=== PATIENT | female | born 1980 | race Caucasian/White ===

== ENCOUNTER → 2016-08-03 | Outpatient (CLI) | payer BC | LOC: MW.LAB 14:32 | PROVIDERS: ATTEND Specialist | DX: N97.9 Female infertility, unspecified (principal) | CPT/HCPCS: 36415; 84144 ==

== ENCOUNTER 2017-09-01 10:49 | Observation (INO) | payer BC ==
[2017-09-01] MEDS ORDERED: Sodium Chloride 0.9% 10 ML Syringe FLUSH PRN ×2 (11:26→11:40)
[2017-09-01] MEDS ORDERED: Sodium Chloride 0.9% 2.5 ML Syringe FLUSH PRN ×2 (11:26→11:40)
[2017-09-01] MEDS ORDERED: Lactated Ringers 1,000 ML IV SCH (11:45)
[2017-09-01] MEDS: Misoprostol 200 MCG Tab VAG SCH ×2 (12:10→15:33)
[2017-09-01] MEDS ORDERED: Morphine 4 MG/ML Syringe IVPUSH PRN (12:57)
[2017-09-01] MEDS ORDERED: Acetaminophen 500 MG Tab PO PRN (12:59)
[2017-09-01] MEDS: Butorphanol 1 MG/ML SDV IVPUSH PRN ×2 (13:05→14:57)
[2017-09-01] MEDS ORDERED: Morphine 4 MG/ML Syringe IVPUSH ONE (16:04)
[2017-09-01] MEDS ORDERED: Morphine 10 MG/ML Syringe IVPUSH PRN (16:05)
[2017-09-01] MEDS: Lactated Ringers 1,000 ML IV SCH ×2 (18:18→19:27)
--- NOTE | 2017-09-01 18:54 | PCM.PREANE ---
Preanesthetic Assessment - Anesthesia/Transfusion/Family Hx Anesthesia History: Prior Anesthesia Without Reaction Transfusion History: Prior Transfusion Without Reaction - Review of Systems General: No Symptoms Pulmonary: No Symptoms Cardiovascular: No Symptoms Gastrointestinal: No Symptoms Neurological: No Symptoms Other: Reports: None - Physical Assessment Height: 5 ft 8 in Weight: 115.666 kg ASA Class: 3 Mental Status: Alert & Oriented x3 Airway Class: Mallampati = 2 Dentition: Reports: Normal Dentition Thyro-Mental Finger Breadths: 3 Mouth Opening Finger Breadths: 3 ROM/Head Extension: Full Lungs: Clear to Auscultation, Normal Respiratory Effort Cardiovascular: Regular Rate, Regular Rhythm - Lab Values: Laboratory Last Values WBC 7.41 K/uL (4.0-11.0) 09/01/17 12:35 RBC 4.40 M/uL (4.30-5.90) 09/01/17 12:35 Hgb 13.2 g/dL (12.0-16.0) 09/01/17 12:35 Hct 38.4 % (36.0-46.0) 09/01/17 12:35 MCV 87.3 fL (80.0-98.0) 09/01/17 12:35 MCH 30.0 pg (27.0-32.0) 09/01/17 12:35 MCHC 34.4 g/dL (31.0-37.0) 09/01/17 12:35 RDW Std Deviation 43.5 fl (28.0-62.0) 09/01/17 12:35 RDW Coeff of Aiden 14 % (11.0-15.0) 09/01/17 12:35 Plt Count 227 K/uL (150-400) 09/01/17 12:35 MPV 9.30 fL (7.40-12.00) 09/01/17 12:35 Nucleated RBC % 0.0 /100WBC 09/01/17 12:35 Nucleated RBCs # 0 K/uL 09/01/17 12:35 Blood Type A POSITIVE 09/01/17 12:35 Antibody Screen NEGATIVE 09/01/17 12:35 Antigen Typing E Antigen - NEGATIVE 09/01/17 12:35 Crossmatch See Detail 09/01/17 12:35 - Allergies Allergies/Adverse Reactions: Allergies Allergy/AdvReac Type Severity Reaction Status Date / Time No Known Allergies Allergy Verified 07/22/13 14:34 - Acknowledgements Anesthesia Type Planned: Epidural Pt an Appropriate Candidate for the Planned Anesthesia: Yes Alternatives and Risks of Anesthesia Discussed w Pt/Guardian: Yes Pt/Guardian Understands and Agrees with Anesthesia Plan: Yes PreAnesthesia Questionnaire HEENT History: Reports: None Cardiovascular History: Reports: None Respiratory History: Reports: None Gastrointestinal History: Reports: GERD Genitourinary History: Reports: None [employer] History: Reports: , Spontaneous : 3 Para: 1 LMP (Approximate): Other OB/BYN History: Hx of retatained placenta Musculoskeletal History: Reports: Fracture Neurological History: Reports: Migraines Psychiatric History: Reports: Anxiety, Depression, OCD, Panic Attack Endocrine/Metabolic History: Reports: Hypothyroidism, Obesity/BMI 30+ Hematologic History: Reports: None Immunologic History: Reports: None Oncologic (Cancer) History: Reports: None Dermatologic History: Reports: None - Infectious Disease History Infectious Disease History: Reports: None - Past Surgical History GI Surgical History: Reports: Cholecystectomy Female Surgical History: Reports: None Musculoskeletal Surgical History: Reports: ORIF Other Musculoskeletal Surgeries/Procedures:: left tibia - SUBSTANCE USE Smoking Status *Q: Never Smoker Second Hand Smoke Exposure: No Recreational Drug Use History: No - HOME MEDS Home Medications: Home Meds Enoxaparin Sodium [Lovenox] 40 mg SQ DAILY 09/01/17 [History] Levothyroxine [Synthroid] 88 mcg PO 09/01/17 [History] - CURRENT (IN HOUSE) MEDS Current Meds: Current Medications Acetaminophen (Tylenol Extra Strength) 1,000 mg PO Q6H PRN PRN Reason: Pain Butorphanol Tartrate (Stadol) 1 mg IVPUSH Q1H PRN PRN Reason: Pain Last Admin: 09/01/17 14:57 Dose: 1 mg Lactated Ringer's (Ringers, Lactated) 1,000 mls @ 150 mls/hr IV ASDIRECTED CORBIN Misoprostol (Cytotec) 400 mcg VAG Q3H CORBIN Last Admin: 09/01/17 15:33 Dose: 400 mcg Morphine Sulfate (Morphine) 6 mg IVPUSH Q4H PRN PRN Reason: Pain Sodium Chloride (Saline Flush) 10 ml FLUSH ASDIRECTED PRN PRN Reason: Keep Vein Open Sodium Chloride (Saline Flush) 2.5 ml FLUSH ASDIRECTED PRN PRN Reason: Keep Vein Open Sodium Chloride (Saline Flush) 10 ml FLUSH ASDIRECTED PRN PRN Reason: Keep Vein Open Sodium Chloride (Saline Flush) 2.5 ml FLUSH ASDIRECTED PRN PRN Reason: Keep Vein Open Discontinued Medications Lactated Ringer's (Ringers, Lactated) 1,000 mls @ 150 mls/hr IV ASDIRECTED CORBIN Morphine Sulfate (Morphine) 4 mg IVPUSH Q4H PRN PRN Reason: Pain Last Admin: 09/01/17 13:54 Dose: 4 mg Morphine Sulfate (Morphine) 4 mg IVPUSH ONETIME ONE Stop: 09/01/17 16:05 Last Admin: 09/01/17 14:24 Dose: 4 mg
[2017-09-01] MEDS ORDERED: Oxytocin/0.9 % Sodium Chloride 30 UNIT/500 ML BAG ONE ×2 (19:52→22:43)
[2017-09-01] MEDS ORDERED: Oxytocin/Lactated Ringers 30 UNIT/500 ML BAG IV SCH (20:03)
[2017-09-02] MEDS: Ampicillin/Sulbactam Na 3 GM in Sodium Chloride 0.9% 100 ML IV SCH ×2 (02:18→08:23)
[2017-09-02] MEDS ORDERED: LORazepam 1 MG Tab PO ONE (02:22)
[2017-09-02] MEDS ORDERED: Ibuprofen 600 MG Tab PO PRN (02:59)
[2017-09-02] MEDS ORDERED: Water For Irrigation,Sterile 1,000 ML Container IRR SCH (05:15)
[2017-09-02] MEDS ORDERED: Levothyroxine 88 MCG Tab PO SCH (07:30)
[2017-09-02 09:17] VITALS: BP 106/64
--- NOTE | 2017-09-02 09:30 | PCM.PN ---
- General Info Date of Service: 09/02/17 Admission Dx/Problem (Free Text): 36 yo s/p medical managment of missed . Subjective Update: She is having normal grief reaction , she denies any heavy vaginal bleeding. She wants to go home Functional Status: Reports: Pain Controlled, Tolerating Diet, Ambulating, Urinating - Review of Systems General: Reports: No Symptoms HEENT: Reports: No Symptoms Pulmonary: Reports: No Symptoms Cardiovascular: Reports: No Symptoms Gastrointestinal: Reports: No Symptoms Genitourinary: Reports: No Symptoms Musculoskeletal: Reports: No Symptoms Skin: Reports: No Symptoms Neurological: Reports: No Symptoms Psychiatric: Reports: No Symptoms - Patient Data Vitals - Most Recent: Last Vital Signs Temp 36.8 C 09/02/17 08:00 Pulse 78 09/02/17 08:00 Resp 16 09/02/17 08:00 BP 106/64 09/02/17 08:00 Pulse Ox 97 09/02/17 08:00 Weight - Most Recent: 115.666 kg Lab Results Last 24 Hours: Laboratory Results - last 24 hr 09/01/17 09/01/17 09/01/17 Range/Units 12:35 12:35 12:35 WBC 7.41 (4.0-11.0) K/uL RBC 4.40 (4.30-5.90) M/uL Hgb 13.2 (12.0-16.0) g/dL Hct 38.4 (36.0-46.0) % MCV 87.3 (80.0-98.0) fL MCH 30.0 (27.0-32.0) pg MCHC 34.4 (31.0-37.0) g/dL RDW Std Deviation 43.5 (28.0-62.0) fl RDW Coeff of Aiden 14 (11.0-15.0) % Plt Count 227 (150-400) K/uL MPV 9.30 (7.40-12.00) fL Neut % (Auto) (48.0-80.0) % Lymph % (Auto) (16.0-40.0) % Gilliam % (Auto) (0.0-15.0) % Eos % (Auto) (0.0-7.0) % Baso % (Auto) (0.0-1.5) % Neut # (Auto) (1.4-5.7) K/uL Lymph # (Auto) (0.6-2.4) K/uL Gilliam # (Auto) (0.0-0.8) K/uL Eos # (Auto) (0.0-0.7) K/uL Baso # (Auto) (0.0-0.1) K/uL Nucleated RBC % 0.0 /100WBC Nucleated RBCs # 0 K/uL Blood Type A POSITIVE Antibody Screen NEGATIVE Antigen Typing E Antigen - NEGATIVE Crossmatch See Detail 09/02/17 Range/Units 08:15 WBC 9.10 (4.0-11.0) K/uL RBC 3.78 L (4.30-5.90) M/uL Hgb 11.3 L (12.0-16.0) g/dL Hct 32.9 L (36.0-46.0) % MCV 87.0 (80.0-98.0) fL MCH 29.9 (27.0-32.0) pg MCHC 34.3 (31.0-37.0) g/dL RDW Std Deviation 43.4 (28.0-62.0) fl RDW Coeff of Aiden 14 (11.0-15.0) % Plt Count 202 (150-400) K/uL MPV 9.10 (7.40-12.00) fL Neut % (Auto) 74.7 (48.0-80.0) % Lymph % (Auto) 17.1 (16.0-40.0) % Gilliam % (Auto) 6.9 (0.0-15.0) % Eos % (Auto) 1.2 (0.0-7.0) % Baso % (Auto) 0.1 (0.0-1.5) % Neut # (Auto) 6.8 H (1.4-5.7) K/uL Lymph # (Auto) 1.6 (0.6-2.4) K/uL Gilliam # (Auto) 0.6 (0.0-0.8) K/uL Eos # (Auto) 0.1 (0.0-0.7) K/uL Baso # (Auto) 0.0 (0.0-0.1) K/uL Nucleated RBC % 0.0 /100WBC Nucleated RBCs # 0 K/uL Blood Type Antibody Screen Antigen Typing Crossmatch Med Orders - Current: Current Medications Acetaminophen (Tylenol Extra Strength) 1,000 mg PO Q6H PRN PRN Reason: Pain Butorphanol Tartrate (Stadol) 1 mg IVPUSH Q1H PRN PRN Reason: Pain Last Admin: 09/01/17 14:57 Dose: 1 mg Enoxaparin Sodium (Lovenox) 40 mg SUBCUT Q24H COUNTS INCLUDE 234 BEDS AT THE [facility] Lactated Ringer's (Ringers, Lactated) 1,000 mls @ 150 mls/hr IV ASDIRECTED COUNTS INCLUDE 234 BEDS AT THE [facility] Last Admin: 09/01/17 19:27 Dose: 999 mls/hr Oxytocin/Lactated Ringer's (Pitocin In Lr 30 Units/500 Ml) 30 unit in 500 mls @ 500 mls/hr IV TITRATE CORBIN; Protocol Ampicillin Sodium/Sulbactam (Sodium 3 gm/ Sodium Chloride) 100 mls @ 200 mls/ hr IV Q6H COUNTS INCLUDE 234 BEDS AT THE [facility] Stop: 09/02/17 18:14 Last Admin: 09/02/17 08:23 Dose: 200 mls/hr Ibuprofen (Motrin) 600 mg PO Q6H PRN PRN Reason: Abdominal Pain Last Admin: 09/02/17 04:58 Dose: 600 mg Levothyroxine Sodium (Synthroid) 88 mcg PO ACBREAKFAST COUNTS INCLUDE 234 BEDS AT THE [facility] Last Admin: 09/02/17 08:22 Dose: 88 mcg Misoprostol (Cytotec) 400 mcg VAG Q3H COUNTS INCLUDE 234 BEDS AT THE [facility] Last Admin: 09/01/17 15:33 Dose: 400 mcg Morphine Sulfate (Morphine) 6 mg IVPUSH Q4H PRN PRN Reason: Pain Sodium Chloride (Saline Flush) 10 ml FLUSH ASDIRECTED PRN PRN Reason: Keep Vein Open Sodium Chloride (Saline Flush) 2.5 ml FLUSH ASDIRECTED PRN PRN Reason: Keep Vein Open Sodium Chloride (Saline Flush) 10 ml FLUSH ASDIRECTED PRN PRN Reason: Keep Vein Open Sodium Chloride (Saline Flush) 2.5 ml FLUSH ASDIRECTED PRN PRN Reason: Keep Vein Open Sterile Water (Sterile Water For Irrigation) 1,000 ml IRR ASDIRECTED COUNTS INCLUDE 234 BEDS AT THE [facility] Discontinued Medications Lactated Ringer's (Ringers, Lactated) 1,000 mls @ 150 mls/hr IV ASDIRECTED CORBIN Fentanyl/Bupivacaine HCl (Ijkyhedw-Iwtzw-Nu 2 Mcg/Ml-0.125%) Confirm Administered Dose 100 mls @ as directed EP .STK-MED ONE Stop: 09/01/17 18:56 Oxytocin/Sodium Chloride (Oxytocin 30 Unit/500 Ml-Ns) Confirm Administered Dose 30 unit in 500 mls @ as directed .ROUTE .STK-MED ONE Stop: 09/01/17 19:53 Last Admin: 09/01/17 20:03 Dose: 500 mls/hr Oxytocin/Sodium Chloride (Oxytocin 30 Unit/500 Ml-Ns) Confirm Administered Dose 30 unit in 500 mls @ as directed .ROUTE .STK-MED ONE Stop: 09/01/17 22:44 Last Admin: 09/01/17 22:45 Dose: 999 mls/hr Lorazepam (Ativan) 1 mg PO ONETIME ONE Stop: 09/02/17 02:23 Last Admin: 09/02/17 02:35 Dose: 1 mg Morphine Sulfate (Morphine) 4 mg IVPUSH Q4H PRN PRN Reason: Pain Last Admin: 09/01/17 13:54 Dose: 4 mg Morphine Sulfate (Morphine) 4 mg IVPUSH ONETIME ONE Stop: 09/01/17 16:05 Last Admin: 09/01/17 14:24 Dose: 4 mg - Exam General: Alert HEENT: Pupils Equal Neck: Supple Lungs: Clear to Auscultation Cardiovascular: Regular Rate, Regular Rhythm GI/Abdominal Exam: Normal Bowel Sounds (Female) Exam: Normal External Exam Back Exam: Normal Inspection Extremities: Normal Inspection - Problem List & Annotations (1) Missed SNOMED Code(s): 85118199 Code(s): O02.1 - MISSED Status: Acute Current Visit: Yes - Problem List Review Problem List Initiated/Reviewed/Updated: Yes - My Orders Last 24 Hours: My Active Orders 09/01/17 11:26 Sodium Chloride 0.9% [Saline Flush] 10 ml FLUSH ASDIRECTED PRN Sodium Chloride 0.9% [Saline Flush] 2.5 ml FLUSH ASDIRECTED PRN Saline Lock Insert [OM.PC] Routine 09/01/17 11:30 Misoprostol [Cytotec] 400 mcg VAG Q3H 09/01/17 11:40 Patient Status [ADT] Routine Non Stress Test [RC] PER UNIT ROUTINE May Shower [RC] ASDIRECTED Up ad Sushma [RC] ASDIRECTED Vital Signs [RC] PER UNIT ROUTINE Sodium Chloride 0.9% [Saline Flush] 10 ml FLUSH ASDIRECTED PRN Sodium Chloride 0.9% [Saline Flush] 2.5 ml FLUSH ASDIRECTED PRN Peripheral IV Insertion Adult [OM.PC] Routine Resuscitation Status Routine 09/01/17 12:35 RED BLOOD CELLS LP [BBK] Routine 09/01/17 12:37 TORCH IGG/IGM [REF] Routine 09/01/17 12:56 Butorphanol [Stadol] 1 mg IVPUSH Q1H PRN 09/01/17 12:59 Acetaminophen [Tylenol Extra Strength] 1,000 mg PO Q6H PRN 09/01/17 16:05 Morphine 6 mg IVPUSH Q4H PRN 09/01/17 18:30 Lactated Ringers [Ringers, Lactated] 1,000 ml IV ASDIRECTED 09/01/17 20:03 Oxytocin/Lactated Ringers [Pitocin in LR 30 Units/500 ML] 30 unit in 500 ml IV TITRATE 09/01/17 23:15 Pelvis Non OB Ltd [US] Routine 09/01/17 23:45 Ampicillin/Sulbactam Na [Unasyn] 3 gm Sodium Chloride 0.9% [Normal Saline] 100 ml IV Q6H 09/01/17 Dinner Clear Liquid Diet [DIET] 09/02/17 02:59 Ibuprofen [Motrin] 600 mg PO Q6H PRN 09/02/17 05:15 Water For Irrigation,Sterile [Sterile Water for Irrigation] 1,000 ml IRR ASDIRECTED 09/02/17 07:30 Levothyroxine [Synthroid] 88 mcg PO ACBREAKFAST 09/03/17 08:00 Enoxaparin [Lovenox] 40 mg SUBCUT Q24H - Assessment Assessment:: 36 yo s/p medical management for missed , undergoing normal grief process - Plan Plan:: Discharge home Reviewed normal grief process
--- NOTE | 2017-09-02 10:19 | PCM48HPAN ---
Post Anesthesia Note - EVALUATION WITHIN 48HRS OF ANESTHETIC Vital Signs in Normal Range: Yes Patient Participated in Evaluation: Yes Respiratory Function Stable: Yes Airway Patent: Yes Cardiovascular Function Stable: Yes Hydration Status Stable: Yes Pain Control Satisfactory: Yes Nausea and Vomiting Control Satisfactory: Yes Mental Status Recovered: Yes Resp Rate: 16
[2017-09-03] MEDS ORDERED: Enoxaparin 40 MG/0.4 ML Syringe SUBCUT SCH (08:00)
--- NOTE | 2017-09-04 08:33 | US ---
EXAM DATE: 09/01/17 PATIENT'S AGE: 36 Patient: BENJAMIN SCHMIDT Facility: [place], [place] Site . Site : [id number] Study: US Pelvis [id number]/2/2018 12:06:06 AM Ordering Physician: Israel Jarrett Final Report: INDICATION: Vaginal bleeding, Patient is status post 19 week medical TECHNIQUE: Ultrasound limited pelvis transabdominal. Real-time varma scale sonographic images with spectral and color Doppler imaging of the endometrium obtained. COMPARISON: None FINDINGS: Uterus: 16 x 7.5 cm. Normal echotexture of the myometrium noted with no masses are seen. Endometrium: The endometrium measures 8 mm in thickness with no appreciable vascularity of the endometrium identified. Right ovary: Not visualized. Left ovary: Not visualized. Cul-de-sac: No significant ascites noted. IMPRESSION: 1. The endometrium is thin and unremarkable appearance with no sonographic evidence of retained products of conception. Dictated by Chandana Hsu MD @ 09/02/2017 12:28:57 AM Dictated by: Chandana Hsu MD @ 09/02/2017 00:32:19 (Electronic Signature) Report Signed by Proxy. GREGORIA
--- NOTE | 2017-09-04 12:11 | OR ---
SURGEON: AZRA ZHOU DATE OF PROCEDURE: 09/01/2017 PREOPERATIVE DIAGNOSIS: A 36-year-old 3, para 1-0-1-1 with second trimester missed . POSTOPERATIVE DIAGNOSIS: A 36-year-old, 3, para 1-0-1-1 with second trimester missed . PROCEDURES: 1. Medical Induction of labor . 2. Vaginal delivery. 3. Delivery of placenta. ESTIMATED BLOOD LOSS: 20 mL. ANESTHESIA: Epidural. FINDINGS: macerated fetus . Empty Uterus with confirmation via ultrasound after delivery PROCEDURE Patient is a 36-year-old G3, P1-0-1-1, who presented to the clinic and had an ultrasound done that showed missed . The patient was counseled about management options and she wanted to proceed with medical termination of the . The patient was given intravaginal Cytotec 400 mcg x2 doses after which patient delivered the female macerated fetus at 1945. Subsequently, Pitocin was also started and the patient delivered the placenta with gentle traction on cord with a clamp Placenta delivered at 2235 hours. An ultrasound was ordered to confirm that the uterus was empty. Thin stripe was noted and empty uterus was confirmed. The patient was started on 3 g of Unasyn as a result of the palpation of the placenta. The patient tolerated the procedure well. All instrument and pad counts were correct x2. PERNELL MUNOZ /[id number] MTDD
== END 2017-09-02 10:50 | disposition home or self-care (01) ==
LOC: MW.OBCHECK 10:49 → MW.OB 10:52 → MW.OBCHECK 11:40 → MW.OB 11:50
PROVIDERS: ADMIT Obstetrics & Gynecology; ATTEND Obstetrics & Gynecology
DX: O02.1 Missed abortion (principal); F41.9 Anxiety disorder, unspecified; E07.9 Disorder of thyroid, unspecified; Z87.891 Personal history of nicotine dependence; Z79.899 Other long term (current) drug therapy
CPT/HCPCS: 36415; 59409; 59821; 76857; 85025; 85027; 86644; 86645; 86694; 86695; 86696; 86762; 86777; 86778; 86850; 86900; 86901; 86902; 96365; 96375; 96376; A9270; G0378; J0295; J0595; J2270; J2590; J7030; J7120; 59025; 86920; 86921; 86922

== ENCOUNTER 2023-05-15 14:24 | Emergency (ER) | payer BC ==
[2023-05-15] MEDS: LORazepam 2 MG/ML SDV IVPUSH STA (16:31)
[2023-05-15] MEDS: Sodium Chloride 0.9% 1,000 ML IV STA (16:31)
[2023-05-15] MEDS: Sodium Chloride 0.9% 10 ML Syringe FLUSH PRN (16:32)
[2023-05-15] MEDS: Sodium Chloride 0.9% 2.5 ML Syringe FLUSH PRN (16:32)
[2023-05-15 16:33] LABS: BASOPHILS ABSOLUTE AUTO 0.04 K/uL (0.00-0.20); BASOPHILS PERCENT AUTO 0.5 % (0.0-1.0); EOSINOPHILS ABSOLUTE AUTO 0.02 K/uL (0.00-0.45); EOSINOPHILS PERCENT AUTO 0.2 % (0.0-6.0); HEMATOCRIT 40.1 % (37.0-47.0); HEMOGLOBIN 13.8 g/dL (12.0-16.0); IMMATURE GRAN ABSOLUTE AUTO 0.01 K/uL (0.00-0.05); IMMATURE GRAN PERCENT AUTO 0.1 % (0.0-0.4); LYMPHOCYTES ABSOLUTE AUTO 1.25 K/uL (1.00-4.80); LYMPHOCYTES PERCENT AUTO 15.6 % (24.0-44.0); MEAN CORPUSCULAR HEMOGLOBIN 29.4 pg (28.0-32.0); MEAN CORPUSCULAR HGB CONC 34.4 g/dL (32.0-36.0); MEAN CORPUSCULAR VOLUME 85.3 fL (83.0-99.0); MEAN PLATELET VOLUME 9.7 fL (9.4-12.3); MONOCYTES ABSOLUTE AUTO 0.36 K/uL (0.00-0.80); MONOCYTES PERCENT AUTO 4.5 % (0.0-8.0); NEUTROPHILS ABSOLUTE AUTO 6.34 K/uL (1.80-7.70); NEUTROPHILS PERCENT AUTO 79.1 % (41.0-71.0); PLATELET COUNT,PLT 359 K/uL (150-400); WHITE BLOOD CELL COUNT,WBC 8.02 K/uL (3.9-11.3)
[2023-05-15 16:56] LABS: INR 1.04 (0.86-1.11); PTT,PARTIAL THROMBOPLSTIN TIME 26.5 SEC (23.9-30.7)
[2023-05-15 16:58] LABS: D-DIMER QUANTITATIVE < 0.19 mg/L FEU (0.00-0.50)
[2023-05-15 17:14] LABS: A/G RATIO 0.9 (0.9-1.6); ALANINE AMINOTRANSFERASE,ALT 13 IU/L (14-63); ALBUMIN 3.6 g/dL (3.4-5.0); ALKALINE PHOSPHATASE 61 U/L (46-116); ASPARTATE AMNIOTRANSFERASE,AST 14 IU/L (15-37); BILIRUBIN TOTAL 0.5 mg/dL (0.2-1.0); BLOOD UREA NITROGEN,BUN 9 mg/dL (7.0-18.0); CARBON DIOXIDE,CO2 24.5 mmol/L (21.0-32.0); CHLORIDE,CL 103 mmol/L (98-107); CREATININE 0.8 mg/dL (0.6-1.0); EST CRCL DRUG DOSING (CG) 90.53 mL/min; GLUCOSE RANDOM 94 mg/dL (74-106); LIPASE 22 U/L (16-77); POTASSIUM,K 3.9 mmol/L (3.5-5.1); PROTEIN TOTAL,TP 7.6 g/dL (6.4-8.2); SODIUM,NA 141 mmol/L (136-145); TSH ULTRASENSITIVE 1.34 uIU/mL (0.36-3.74)
[2023-05-15 17:16] LABS: ESTIMATED GFR 93 mL/min (>60)
[2023-05-15 17:53] LABS: CORONAVIRUS COVID-19 NAA NEGATIVE (NEGATIVE); INFLUENZA A NAA NEGATIVE (NEGATIVE); INFLUENZA B NAA NEGATIVE (NEGATIVE); RESPIRATORY SYNCYTIAL VIR NAA NEGATIVE (NEGATIVE)
[2023-05-15 18:53] VITALS: BP 100/65; PULSE 96
== END 2023-05-15 18:52 | disposition home or self-care (01) ==
LOC: MW.ED 14:24
DX: R00.2 Palpitations (principal); E66.9 Obesity, unspecified; E03.9 Hypothyroidism, unspecified; Z68.30 Body mass index [BMI] 30.0-30.9, adult; Z79.899 Other long term (current) drug therapy; Z90.49 Acquired absence of other specified parts of digestive tract
CPT/HCPCS: 0241U; 36415; 80053; 83690; 83735; 84443; 84484; 84703; 85025; 85379; 85610; 85730; 96374; 99284; J2060; J3490; J7030; 93010